=== PATIENT | female | born 1990 | race Hispanic/Latino ===

== ENCOUNTER 2023-01-22 20:43 | Emergency (ER) | payer BC, OTHER ==
--- OUTSIDE RECORDS SUMMARY | 2023-01-22 20:47 | XMS REPORT | Continuity of Care Document ---
:1990 Author Organization [facility] t Address [address] [place] [address] Care Team Providers Name Role Phone Ulices Bryan Melo Attending Clinician Unavailable Aden Gleason Attending Clinician Unavailable Aden Gleason Admitting Clinician Unavailable Payers Payer Name Policy Type Policy Number Effective Date Expiration Date Derick anastasiiajorje Blue Cross 6 [id number] 2021 [facility] Blue Shield 00:00:00 - [facility] AETNA 53 [id number] 2016 [facility] 00:00:00 [facility] Problems Condition Condition Condition Status Onset Resolution Last Treating Co mments Source Name Details Category Date Date Treatment Clinician Date [id number] Body mass Problem Com mon index Spirit [BMI] - [facility] 30.0-30.9, [facility] [id number] Other Problem Common obesity Spirit due to - [facility] excess [facility] [id number] Well woman Problem Co mmon exam with Spirit routine - [facility] gynecologi [facility] [id number] Herpes Problem Common simplex Spirit vulvovagin - [facility] itis [facility] [id number] Pharyngiti Problem Co mmon s, Spirit unspecifie - [facility] d etiology [facility] [id number] Fever, Problem Common unspecifie Spirit d fever - [facility] cause [facility] [id number] Influenza Problem Comm on B [facility] [id number] Surveillan Problem Co mmon ce for Spirit - [facility] control, [facility] ne [facility] [id number] Mixed Problem Common hyperlipid [facility] emia - [facility] Allergies, Adverse Reactions, Alerts Allergy Allergy Status Severity Reaction(s) Onset Inactive Treating Comm ents Source Name Type Date Date Clinician No Known DA Active U 2012-11 [facility] No Known DA Active U 2012-11 [facility] Allergie 2[facility] 00 [facility] Social History Social Habit Start Date Stop Date Quantity Comments Source History of Tobacco Use Co mmon [facility] Sex Assigned At Com mon [facility] Smoking Status Start Date Stop Date Source Never Smoker Common [facility] Medications Ordered Filled Start Stop Current Ordering Indication Dosage Frequency Signature Comments Components Source Medication Medication Date Date Medication? Clinician (SIG) Name Name Urban Wang 2021-11- No Mounjaro 5 MG/0.5ML MG/0.5ML 0-05 01-27 MG/0.5ML 00:00: 00:00 00 :00 Urban Duggan 5 2021-11- No Mounjaro 5 MG/0.5ML MG/0.5ML 0-05 01-27 MG/0.5ML 00:00: 00:00 00 :00 Urban Duggan 5 2021-11- No Mounjaro 5 MG/0.5ML MG/0.5ML 0-05 11-25 MG/0.5ML 00:00: 00:00 00 :00 Urban Duggan 5 2021-11- No Mounjaro 5 MG/0.5ML MG/0.5ML 0-05 11-04 MG/0.5ML 00:00: 00:00 00 :00 Mounjaro Mounjaro 2021- No Mounjaro 2.5 2.5 9- 10-01 2.5 MG/0.5ML MG/0.5ML 00:00: 00:00 MG/0.5ML 00 :00 Mounjaro Mounjaro 2021- No Mounjaro 2.5 2.5 9- 10-01 2.5 MG/0.5ML MG/0.5ML 00:00: 00:00 MG/0.5ML 00 :00 Mounjaro Mounjaro 2021- No Mounjaro 2.5 2.5 9- 10-01 2.5 MG/0.5ML MG/0.5ML 00:00: 00:00 MG/0.5ML 00 :00 Ozempic (1 Ozempic (1 2021- No Ozempic (1 MG/DOSE) 4 MG/DOSE) 4 8-05 10-04 MG/DOSE) 4 MG/3ML MG/3ML 00:00: 00:00 MG/3ML 00 :00 Tessalon Tessalon 2021- No TID Tessalon Perles 100 Perles 100 04-09 Perles 100 MG MG 00:00: 00:00 MG 00 :00 Tessalon Tessalon 2021- No TID Tessalon Perles 100 Perles 100 04-09 Perles 100 MG MG 00:00: 00:00 MG 00 :00 Tessalon Tessalon 2021- No TID Tessalon Perles 100 Perles 100 04-09 Perles 100 MG MG 00:00: 00:00 MG 00 :00 Tessalon Tessalon 2021- No TID Tessalon Perles 100 Perles 100 04-0912 Perles 100 MG MG 00:00: 00:00 MG 00 :00 Tessalon Tessalon 2021- No TID Tessalon Perles 100 Perles 100 6-02 06-12 Perles 100 MG MG 00:00: 00:00 MG 00 :00 Pen Irwin Pen Irwin 0 No Pen 31G X 5 MM 31G X 5 MM 3-24 Irwin 00:00: 31G X 5 MM 00 Pen Irwin Pen Irwin 0 No Pen 31G X 5 MM 31G X 5 MM 3-24 Irwin 00:00: 31G X 5 MM 00 Pen Irwin Pen Irwin 0 No Pen 31G X 5 MM 31G X 5 MM 3-24 Irwin 00:00: 31G X 5 MM 00 Ozempic Ozempic 0 No Ozempic (0.25 or (0.25 or 3-24 (0.25 or 0.5 0.5 00:00: 0.5 MG/DOSE) 2 MG/DOSE) 2 00 MG/DOSE) 2 MG/1.5ML MG/1.5ML MG/1.5ML Pen Irwin Pen Irwin 0 No Pen 31G X 5 MM 31G X 5 MM 3-24 Irwin 00:00: 31G X 5 MM 00 Pen Irwin Pen Irwin 0 No Pen 31G X 5 MM 31G X 5 MM 3-24 Irwin 00:00: 31G X 5 MM 00 Ozempic Ozempic 0 No Ozempic (0.25 or (0.25 or 3-24 (0.25 or 0.5 0.5 00:00: 0.5 MG/DOSE) 2 MG/DOSE) 2 00 MG/DOSE) 2 MG/1.5ML MG/1.5ML MG/1.5ML Pen Irwin Pen Irwin 0 No Pen 31G X 5 MM 31G X 5 MM 3-24 Irwin 00:00: 31G X 5 MM 00 Ozempic Ozempic 0 No Ozempic (0.25 or (0.25 or 3-24 (0.25 or 0.5 0.5 00:00: 0.5 MG/DOSE) 2 MG/DOSE) 2 00 MG/DOSE) 2 MG/1.5ML MG/1.5ML MG/1.5ML Pen Irwin Pen Irwin 0 No Pen 31G X 5 MM 31G X 5 MM 3-24 Irwin 00:00: 31G X 5 MM 00 Ozempic Ozempic 2021-0 No Ozempic (0.25 or (0.25 or 3-24 (0.25 or 0.5 0.5 00:00: 0.5 MG/DOSE) 2 MG/DOSE) 2 00 MG/DOSE) 2 MG/1.5ML MG/1.5ML MG/1.5ML Ozempic Ozempic 2021-0 No Ozempic (0.25 or (0.25 or 3-24 (0.25 or 0.5 0.5 00:00: 0.5 MG/DOSE) 2 MG/DOSE) 2 00 MG/DOSE) 2 MG/1.5ML MG/1.5ML MG/1.5ML Pen Irwin Pen Irwin 2021-0 No Pen 31G X 5 MM 31G X 5 MM 3-24 Irwin 00:00: 31G X 5 MM 00 Pen Irwin Pen Irwin 2021-0 No Pen 31G X 5 MM 31G X 5 MM 3-24 Irwin 00:00: 31G X 5 MM 00 Pen Irwin Pen Irwin 2021-0 No Pen 31G X 5 MM 31G X 5 MM 3-24 Irwin 00:00: 31G X 5 MM 00 Pen Irwin Pen Irwin 2021-0 No Pen 31G X 5 MM 31G X 5 MM 3-24 Irwin 00:00: 31G X 5 MM 00 Pen Irwin Pen Irwin 2021-0 No Pen 31G X 5 MM 31G X 5 MM 3-24 Irwin 00:00: 31G X 5 MM 00 Pen Irwin Pen Irwin 2021-0 No Pen 31G X 5 MM 31G X 5 MM 3-24 Irwin 00:00: 31G X 5 MM 00 Pen Irwin Pen Irwin 2021-0 No Pen 31G X 5 MM 31G X 5 MM 3-24 Irwin 00:00: 31G X 5 MM 00 Pen Irwin Pen Irwin 2021-0 No Pen 31G X 5 MM 31G X 5 MM 3-24 Irwin 00:00: 31G X 5 MM 00 Pen Irwin Pen Irwin 2021-0 No Pen 31G X 5 MM 31G X 5 MM 3-24 Irwin 00:00: 31G X 5 MM 00 Pen Irwin Pen Irwin 2021-0 No Pen 31G X 5 MM 31G X 5 MM 3-24 Irwin 00:00: 31G X 5 MM 00 Pen Irwin Pen Irwin No Pen 31G X 5 MM 31G X 5 MM 24 Irwin 00:00: 31G X 5 MM 00 Pen Irwin Pen Irwin No Pen 31G X 5 MM 31G X 5 MM 01-29 Irwin 00:00: 31G X 5 MM 00 Pen Irwin Pen Irwin No Pen 31G X 5 MM 31G X 5 MM 01-29 Irwin 00:00: 31G X 5 MM 00 Ozempic Ozempic 2021- No Ozempic (0.25 or (0.25 or 324 05-20 (0.25 or 0.5 0.5 00:00: 00:00 0.5 MG/DOSE) 2 MG/DOSE) 2 00 :00 MG/DOSE) 2 MG/1.5ML MG/1.5ML MG/1.5ML Ozempic Ozempic 2021- No Ozempic (0.25 or (0.25 or 324 05-20 (0.25 or 0.5 0.5 00:00: 00:00 0.5 MG/DOSE) 2 MG/DOSE) 2 00 :00 MG/DOSE) 2 MG/1.5ML MG/1.5ML MG/1.5ML Ozempic Ozempic 2021- No Ozempic (0.25 or (0.25 or 24 05-05 (0.25 or 0.5 0.5 00:00: 00:00 0.5 MG/DOSE) 2 MG/DOSE) 2 00 :00 MG/DOSE) 2 MG/1.5ML MG/1.5ML MG/1.5ML Metformin Metformin 0 No 1{table BID Metformin HCl 500 MG HCl 500 MG 3-08 t_with_ HCl 500 MG 00:00: a_meal} 00 Metformin Metformin 2021-0 No 1{table BID Metformin HCl 500 MG HCl 500 MG 3-08 t_with_ HCl 500 MG 00:00: a_meal} 00 Metformin Metformin 2021-0 No 1{table BID Metformin HCl 500 MG HCl 500 MG 3-08 t_with_ HCl 500 MG 00:00: a_meal} 00 Metformin Metformin 2022-0 No 1{table BID Metformin HCl 500 MG HCl 500 MG 3-08 t_with_ HCl 500 MG 00:00: a_meal} 00 Metformin Metformin 2022-0 No 1{table BID Metformin HCl 500 MG HCl 500 MG 3-08 t_with_ HCl 500 MG 00:00: a_meal} 00 Metformin Metformin 2022-0 No 1{table BID Metformin HCl 500 MG HCl 500 MG 3-08 t_with_ HCl 500 MG 00:00: a_meal} 00 Metformin Metformin 2022-0 No 1{table BID Metformin HCl 500 MG HCl 500 MG 3-08 t_with_ HCl 500 MG 00:00: a_meal} 00 Metformin Metformin 2022-0 No 1{table BID Metformin HCl 500 MG HCl 500 MG 3-08 t_with_ HCl 500 MG 00:00: a_meal} 00 Metformin Metformin 2022-0 No 1{table BID Metformin HCl 500 MG HCl 500 MG 3-08 t_with_ HCl 500 MG 00:00: a_meal} 00 Metformin Metformin 2022-0 No 1{table BID Metformin HCl 500 MG HCl 500 MG 3-08 t_with_ HCl 500 MG 00:00: a_meal} 00 Metformin Metformin 2022-0 No 1{table BID Metformin HCl 500 MG HCl 500 MG 3-08 t_with_ HCl 500 MG 00:00: a_meal} 00 Metformin Metformin 2022-0 No 1{table BID Metformin HCl 500 MG HCl 500 MG 3-08 t_with_ HCl 500 MG 00:00: a_meal} 00 Metformin Metformin 2022-0 No 1{table BID Metformin HCl 500 MG HCl 500 MG 3-08 t_with_ HCl 500 MG 00:00: a_meal} 00 Metformin Metformin 2022-0 No 1{table BID Metformin HCl 500 MG HCl 500 MG 3-08 t_with_ HCl 500 MG 00:00: a_meal} 00 Metformin Metformin 2022-0 No 1{table BID Metformin HCl 500 MG HCl 500 MG 3-08 t_with_ HCl 500 MG 00:00: a_meal} 00 Metformin Metformin 2022-0 No 1{table BID Metformin HCl 500 MG HCl 500 MG 3-08 t_with_ HCl 500 MG 00:00: a_meal} 00 Metformin Metformin 2022-0 No 1{table BID Metformin HCl 500 MG HCl 500 MG 3-08 t_with_ HCl 500 MG 00:00: a_meal} 00 Metformin Metformin 2022-0 No 1{table BID Metformin HCl 500 MG HCl 500 MG 3-08 t_with_ HCl 500 MG 00:00: a_meal} 00 Metformin Metformin 2022-0 No 1{table BID Metformin HCl 500 MG HCl 500 MG 3-08 t_with_ HCl 500 MG 00:00: a_meal} 00 Metformin Metformin 2022-0 No 1{table BID Metformin HCl 500 MG HCl 500 MG 3-08 t_with_ HCl 500 MG 00:00: a_meal} 00 Metformin Metformin 2022-0 No 1{table BID Metformin HCl 500 MG HCl 500 MG 3-08 t_with_ HCl 500 MG 00:00: a_meal} 00 Metformin Metformin 2022-0 No 1{table BID Metformin HCl 500 MG HCl 500 MG 3-08 t_with_ HCl 500 MG 00:00: a_meal} 00 Metformin Metformin 2022-0 No 1{table BID Metformin HCl 500 MG HCl 500 MG 3-08 t_with_ HCl 500 MG 00:00: a_meal} 00 Tamiflu Tamiflu 2019-0 Yes Bryan 1 capsule Common 3- Elena [facility] 00:00: - [facility] 00 [facility] Tamiflu 75 Tamiflu 75 2019-0 No 1{capsu BID Tamiflu 75 MG MG 3-01 le} MG 00:00: 00 Tamiflu 75 Tamiflu 75 2019-0 No 1{capsu BID Tamiflu 75 MG MG 3- le} MG 00:00: 00 Tamiflu 75 Tamiflu 75 2019-0 No 1{capsu BID Tamiflu 75 MG MG 3- le} MG 00:00: 00 Tamiflu 75 Tamiflu 75 2019-0 No 1{capsu BID Tamiflu 75 MG MG 3-01 le} MG 00:00: 00 Tamiflu 75 Tamiflu 75 2019-0 No 1{capsu BID Tamiflu 75 MG MG 3-01 le} MG 00:00: 00 Tamiflu 75 Tamiflu 75 2019-0 No 1{capsu BID Tamiflu 75 MG MG 3-01 le} MG 00:00: 00 Tamiflu 75 Tamiflu 75 2019-0 No 1{capsu BID Tamiflu 75 MG MG 3-01 le} MG 00:00: 00 Tamiflu 75 Tamiflu 75 2019-0 No 1{capsu BID Tamiflu 75 MG MG 3-01 le} MG 00:00: 00 Tamiflu 75 Tamiflu 75 2019-0 No 1{capsu BID Tamiflu 75 MG MG 3-01 le} MG 00:00: 00 Tamiflu 75 Tamiflu 75 2019-0 No 1{capsu BID Tamiflu 75 MG MG 3-01 le} MG 00:00: 00 Tamiflu 75 Tamiflu 75 2019-0 No 1{capsu BID Tamiflu 75 MG MG 3-01 le} MG 00:00: 00 Tamiflu 75 Tamiflu 75 2019-0 No 1{capsu BID Tamiflu 75 MG MG 3-01 le} MG 00:00: 00 Tamiflu 75 Tamiflu 75 2019-0 No 1{capsu BID Tamiflu 75 MG MG 3-01 le} MG 00:00: 00 Tamiflu 75 Tamiflu 75 2019-0 No 1{capsu BID Tamiflu 75 MG MG 3- le} MG 00:00: 00 Tamiflu 75 Tamiflu 75 2019-0 No 1{capsu BID Tamiflu 75 MG MG 3- le} MG 00:00: 00 Tamiflu 75 Tamiflu 75 2019-0 No 1{capsu BID Tamiflu 75 MG MG 3- le} MG 00:00: 00 Tamiflu 75 Tamiflu 75 2019-0 No 1{capsu BID Tamiflu 75 MG MG 3- le} MG 00:00: 00 Tamiflu 75 Tamiflu 75 2019-0 No 1{capsu BID Tamiflu 75 MG MG 3- le} MG 00:00: 00 Tamiflu 75 Tamiflu 75 2019-0 No 1{capsu BID Tamiflu 75 MG MG 3- le} MG 00:00: 00 Tamiflu 75 Tamiflu 75 2019-0 No 1{capsu BID Tamiflu 75 MG MG 3-01 le} MG 00:00: 00 Tamiflu 75 Tamiflu 75 2019-0 No 1{capsu BID Tamiflu 75 MG MG 3-01 le} MG 00:00: 00 Tamiflu 75 Tamiflu 75 2019-0 No 1{capsu BID Tamiflu 75 MG MG 3-01 le} MG 00:00: 00 Tamiflu 75 Tamiflu 75 2019-0 No 1{capsu BID Tamiflu 75 MG MG 3-01 le} MG 00:00: 00 Tamiflu 75 Tamiflu 75 2019-0 No 1{capsu BID Tamiflu 75 MG MG 3-01 le} MG 00:00: 00 Tamiflu 75 Tamiflu 75 2019-0 No 1{capsu BID Tamiflu 75 MG MG 3-01 le} MG 00:00: 00 Tamiflu 75 Tamiflu 75 2019-0 No 1{capsu BID Tamiflu 75 MG MG 3-01 le} MG 00:00: 00 Tamiflu 75 Tamiflu 75 2019-0 No 1{capsu BID Tamiflu 75 MG MG 3-01 le} MG 00:00: 00 Valacyclovi Valacyclovi Yes Bryan 1 tablet Common r HCl r HCl Elena [facility] Mirena Mirena Yes Bryan not Common Elena defined [facility] valACYclovi valACYclovi No 1{table QD valACYclov r HCl 1 GM r HCl 1 GM t} ir HCl 1 GM Albuterol Albuterol No Albuterol Sulfate HFA Sulfate HFA Sulfate 108 (90 108 (90 HFA 108 Base) Base) (90 Base) MCG/ACT MCG/ACT MCG/ACT valACYclovi valACYclovi No 1{table QD valACYclov r HCl 1 GM r HCl 1 GM t} ir HCl 1 GM Mirena Mirena No Mirena Albuterol Albuterol No Albuterol Sulfate HFA Sulfate HFA Sulfate 108 (90 108 (90 HFA 108 Base) Base) (90 Base) MCG/ACT MCG/ACT MCG/ACT valACYclovi valACYclovi No 1{table QD valACYclov r HCl 1 GM r HCl 1 GM t} ir HCl 1 GM Mirena Mirena No Mirena Albuterol Albuterol No Albuterol Sulfate HFA Sulfate HFA Sulfate 108 (90 108 (90 HFA 108 Base) Base) (90 Base) MCG/ACT MCG/ACT MCG/ACT valACYclovi valACYclovi No 1{table QD valACYclov r HCl 1 GM r HCl 1 GM t} ir HCl 1 GM Mirena Mirena No Mirena Albuterol Albuterol No Albuterol Sulfate HFA Sulfate HFA Sulfate 108 (90 108 (90 HFA 108 Base) Base) (90 Base) MCG/ACT MCG/ACT MCG/ACT Albuterol Albuterol No Albuterol Sulfate HFA Sulfate HFA Sulfate 108 (90 108 (90 HFA 108 Base) Base) (90 Base) MCG/ACT MCG/ACT MCG/ACT valACYclovi valACYclovi No 1{table QD valACYclov r HCl 1 GM r HCl 1 GM t} ir HCl 1 GM Mirena Mirena No Mirena Albuterol Albuterol No Albuterol Sulfate HFA Sulfate HFA Sulfate 108 (90 108 (90 HFA 108 Base) Base) (90 Base) MCG/ACT MCG/ACT MCG/ACT valACYclovi valACYclovi No 1{table QD valACYclov r HCl 1 GM r HCl 1 GM t} ir HCl 1 GM Mirena Mirena No Mirena Albuterol Albuterol No Albuterol Sulfate HFA Sulfate HFA Sulfate 108 (90 108 (90 HFA 108 Base) Base) (90 Base) MCG/ACT MCG/ACT MCG/ACT valACYclovi valACYclovi No 1{table QD valACYclov r HCl 1 GM r HCl 1 GM t} ir HCl 1 GM Mirena Mirena No Mirena valACYclovi valACYclovi No 1{table QD valACYclov r HCl 1 GM r HCl 1 GM t} ir HCl 1 GM Mirena Mirena No Mirena Albuterol Albuterol No Albuterol Sulfate HFA Sulfate HFA Sulfate 108 (90 108 (90 HFA 108 Base) Base) (90 Base) MCG/ACT MCG/ACT MCG/ACT valACYclovi valACYclovi No 1{table QD valACYclov r HCl 1 GM r HCl 1 GM t} ir HCl 1 GM Mirena Mirena No Mirena Albuterol Albuterol No Albuterol Sulfate HFA Sulfate HFA Sulfate 108 (90 108 (90 HFA 108 Base) Base) (90 Base) MCG/ACT MCG/ACT MCG/ACT valACYclovi valACYclovi No 1{table QD valACYclov r HCl 1 GM r HCl 1 GM t} ir HCl 1 GM Mirena Mirena No Mirena Albuterol Albuterol No Albuterol Sulfate HFA Sulfate HFA Sulfate 108 (90 108 (90 HFA 108 Base) Base) (90 Base) MCG/ACT MCG/ACT MCG/ACT valACYclovi valACYclovi No 1{table QD valACYclov r HCl 1 GM r HCl 1 GM t} ir HCl 1 GM Mirena Mirena No Mirena Albuterol Albuterol No Albuterol Sulfate HFA Sulfate HFA Sulfate 108 (90 108 (90 HFA 108 Base) Base) (90 Base) MCG/ACT MCG/ACT MCG/ACT Mirena Mirena No Mirena Albuterol Albuterol No Albuterol Sulfate HFA Sulfate HFA Sulfate 108 (90 108 (90 HFA 108 Base) Base) (90 Base) MCG/ACT MCG/ACT MCG/ACT valACYclovi valACYclovi No 1{table QD valACYclov r HCl 1 GM r HCl 1 GM t} ir HCl 1 GM Mirena Mirena No Mirena Albuterol Albuterol No Albuterol Sulfate HFA Sulfate HFA Sulfate 108 (90 108 (90 HFA 108 Base) Base) (90 Base) MCG/ACT MCG/ACT MCG/ACT valACYclovi valACYclovi No 1{table QD valACYclov r HCl 1 GM r HCl 1 GM t} ir HCl 1 GM Mirena Mirena No Mirena Albuterol Albuterol No Albuterol Sulfate HFA Sulfate HFA Sulfate 108 (90 108 (90 HFA 108 Base) Base) (90 Base) MCG/ACT MCG/ACT MCG/ACT valACYclovi valACYclovi No 1{table QD valACYclov r HCl 1 GM r HCl 1 GM t} ir HCl 1 GM valACYclovi valACYclovi No 1{table QD valACYclov r HCl 1 GM r HCl 1 GM t} ir HCl 1 GM Albuterol Albuterol No Albuterol Sulfate HFA Sulfate HFA Sulfate 108 (90 108 (90 HFA 108 Base) Base) (90 Base) MCG/ACT MCG/ACT MCG/ACT Mirena Mirena No Mirena Mirena Mirena No Mirena valACYclovi valACYclovi No 1{table QD valACYclov r HCl 1 GM r HCl 1 GM t} ir HCl 1 GM Ozempic Ozempic No Ozempic (0.25 or (0.25 or (0.25 or 0.5 0.5 0.5 MG/DOSE) 2 MG/DOSE) 2 MG/DOSE) 2 MG/1.5ML MG/1.5ML MG/1.5ML Albuterol Albuterol No Albuterol Sulfate HFA Sulfate HFA Sulfate 108 (90 108 (90 HFA 108 Base) Base) (90 Base) MCG/ACT MCG/ACT MCG/ACT Mirena Mirena No Mirena valACYclovi valACYclovi No 1{table QD valACYclov r HCl 1 GM r HCl 1 GM t} ir HCl 1 GM Ozempic Ozempic No Ozempic (0.25 or (0.25 or (0.25 or 0.5 0.5 0.5 MG/DOSE) 2 MG/DOSE) 2 MG/DOSE) 2 MG/1.5ML MG/1.5ML MG/1.5ML Albuterol Albuterol No Albuterol Sulfate HFA Sulfate HFA Sulfate 108 (90 108 (90 HFA 108 Base) Base) (90 Base) MCG/ACT MCG/ACT MCG/ACT valACYclovi valACYclovi No 1{table QD valACYclov r HCl 1 GM r HCl 1 GM t} ir HCl 1 GM Ozempic Ozempic No Ozempic (0.25 or (0.25 or (0.25 or 0.5 0.5 0.5 MG/DOSE) 2 MG/DOSE) 2 MG/DOSE) 2 MG/1.5ML MG/1.5ML MG/1.5ML Albuterol Albuterol No Albuterol Sulfate HFA Sulfate HFA Sulfate 108 (90 108 (90 HFA 108 Base) Base) (90 Base) MCG/ACT MCG/ACT MCG/ACT Mirena Mirena No Mirena Albuterol Albuterol No Albuterol Sulfate HFA Sulfate HFA Sulfate 108 (90 108 (90 HFA 108 Base) Base) (90 Base) MCG/ACT MCG/ACT MCG/ACT Mirena Mirena No Mirena valACYclovi valACYclovi No 1{table QD valACYclov r HCl 1 GM r HCl 1 GM t} ir HCl 1 GM Ozempic Ozempic No Ozempic (0.25 or (0.25 or (0.25 or 0.5 0.5 0.5 MG/DOSE) 2 MG/DOSE) 2 MG/DOSE) 2 MG/1.5ML MG/1.5ML MG/1.5ML Albuterol Albuterol No Albuterol Sulfate HFA Sulfate HFA Sulfate 108 (90 108 (90 HFA 108 Base) Base) (90 Base) MCG/ACT MCG/ACT MCG/ACT Mirena Mirena No Mirena valACYclovi valACYclovi No 1{table QD valACYclov r HCl 1 GM r HCl 1 GM t} ir HCl 1 GM Ozempic Ozempic No Ozempic (0.25 or (0.25 or (0.25 or 0.5 0.5 0.5 MG/DOSE) 2 MG/DOSE) 2 MG/DOSE) 2 MG/1.5ML MG/1.5ML MG/1.5ML Ozempic Ozempic No Ozempic (0.25 or (0.25 or (0.25 or 0.5 0.5 0.5 MG/DOSE) 2 MG/DOSE) 2 MG/DOSE) 2 MG/1.5ML MG/1.5ML MG/1.5ML Mirena Mirena No Mirena Albuterol Albuterol No Albuterol Sulfate HFA Sulfate HFA Sulfate 108 (90 108 (90 HFA 108 Base) Base) (90 Base) MCG/ACT MCG/ACT MCG/ACT valACYclovi valACYclovi No 1{table QD valACYclov r HCl 1 GM r HCl 1 GM t} ir HCl 1 GM Ozempic Ozempic No Ozempic (0.25 or (0.25 or (0.25 or 0.5 0.5 0.5 MG/DOSE) 2 MG/DOSE) 2 MG/DOSE) 2 MG/1.5ML MG/1.5ML MG/1.5ML Mirena Mirena No Mirena valACYclovi valACYclovi No 1{table QD valACYclov r HCl 1 GM r HCl 1 GM t} ir HCl 1 GM Albuterol Albuterol No Albuterol Sulfate HFA Sulfate HFA Sulfate 108 (90 108 (90 HFA 108 Base) Base) (90 Base) MCG/ACT MCG/ACT MCG/ACT Ozempic Ozempic No Ozempic (0.25 or (0.25 or (0.25 or 0.5 0.5 0.5 MG/DOSE) 2 MG/DOSE) 2 MG/DOSE) 2 MG/1.5ML MG/1.5ML MG/1.5ML valACYclovi valACYclovi No 1{table QD valACYclov r HCl 1 GM r HCl 1 GM t} ir HCl 1 GM Albuterol Albuterol No Albuterol Sulfate HFA Sulfate HFA Sulfate 108 (90 108 (90 HFA 108 Base) Base) (90 Base) MCG/ACT MCG/ACT MCG/ACT Mirena Mirena No Mirena Ozempic Ozempic No Ozempic (0.25 or (0.25 or (0.25 or 0.5 0.5 0.5 MG/DOSE) 2 MG/DOSE) 2 MG/DOSE) 2 MG/1.5ML MG/1.5ML MG/1.5ML valACYclovi valACYclovi No 1{table QD valACYclov r HCl 1 GM r HCl 1 GM t} ir HCl 1 GM Albuterol Albuterol No Albuterol Sulfate HFA Sulfate HFA Sulfate 108 (90 108 (90 HFA 108 Base) Base) (90 Base) MCG/ACT MCG/ACT MCG/ACT Mirena Mirena No Mirena Ozempic Ozempic No Ozempic (0.25 or (0.25 or (0.25 or 0.5 0.5 0.5 MG/DOSE) 2 MG/DOSE) 2 MG/DOSE) 2 MG/1.5ML MG/1.5ML MG/1.5ML Mounjaro 5 Mounjaro 5 No Mounjaro 5 MG/0.5ML MG/0.5ML MG/0.5ML Mirena Mirena No Mirena valACYclovi valACYclovi No 1{table QD valACYclov r HCl 1 GM r HCl 1 GM t} ir HCl 1 GM Albuterol Albuterol No Albuterol Sulfate HFA Sulfate HFA Sulfate 108 (90 108 (90 HFA 108 Base) Base) (90 Base) MCG/ACT MCG/ACT MCG/ACT Ozempic Ozempic No Ozempic (0.25 or (0.25 or (0.25 or 0.5 0.5 0.5 MG/DOSE) 2 MG/DOSE) 2 MG/DOSE) 2 MG/1.5ML MG/1.5ML MG/1.5ML Mounjaro 5 Mounjaro 5 No Mounjaro 5 MG/0.5ML MG/0.5ML MG/0.5ML Mirena Mirena No Mirena valACYclovi valACYclovi No 1{table QD valACYclov r HCl 1 GM r HCl 1 GM t} ir HCl 1 GM Albuterol Albuterol No Albuterol Sulfate HFA Sulfate HFA Sulfate 108 (90 108 (90 HFA 108 Base) Base) (90 Base) MCG/ACT MCG/ACT MCG/ACT Albuterol Albuterol No Albuterol Sulfate HFA Sulfate HFA Sulfate 108 (90 108 (90 HFA 108 Base) Base) (90 Base) MCG/ACT MCG/ACT MCG/ACT Mirena Mirena No Mirena valACYclovi valACYclovi No 1{table QD valACYclov r HCl 1 GM r HCl 1 GM t} ir HCl 1 GM Ozempic Ozempic No Ozempic (0.25 or (0.25 or (0.25 or 0.5 0.5 0.5 MG/DOSE) 2 MG/DOSE) 2 MG/DOSE) 2 MG/1.5ML MG/1.5ML MG/1.5ML Mirena Mirena No Mirena Vital Signs Vital Name Observation Time Observation Value Comments Source height 2022-10-05 16:50:00 61 [in_i] [facility] weight 2022-10-05 16:50:00 135 [lb_av] [facility] 2022-10-05 16:50:00 25.51 kg/m2 [facility] height 2022-08-12 11:40:00 61 [in_i] [facility] weight 2022-08-12 11:40:00 144 [lb_av] [facility] 2022-08-12 11:40:00 27.21 kg/m2 [facility] blood pressure 2022-08-12 11:40:00 117 mm[Hg] [facility] blood pressure 2022-08-12 11:40:00 67 mm[Hg] [facility] height 2022-07-09 11:10:00 61 [in_i] [facility] weight 2022-07-09 11:10:00 149 [lb_av] [facility] temperature 2022-07-09 11:10:00 98 [degF] [facility] bmi 2022-07-09 11:10:00 28.15 kg/m2 [facility] height 2022-06-12 10:50:00 61 [in_i] [facility] weight 2022-06-12 10:50:00 151.4 [lb_av] [facility] temperature 2022-06-12 10:50:00 97.7 [degF] [facility] bmi 2022-06-12 10:50:00 28.6 kg/m2 [facility] oximetry 2022-06-12 10:50:00 99 % [facility] respiratory rate 2022-06-12 10:50:00 18 /min [facility] blood pressure 2022-06-12 10:50:00 118 mm[Hg] [facility] systolic [facility] blood pressure 2022-06-12 10:50:00 60 mm[Hg] [facility] diastolic [facility] height 2022-04-10 09:30:00 61 [in_i] [facility] weight 2022-04-10 09:30:00 160 [lb_av] [facility] temperature 2022-04-10 09:30:00 98 [degF] [facility] bmi 2022-04-10 09:30:00 30.23 kg/m2 [facility] height 2021-12-10 13:00:00 61 [in_i] [facility] weight 2021-12-10 13:00:00 170 [lb_av] [facility] temperature 2021-12-10 13:00:00 97.4 [degF] [facility] bmi 2021-12-10 13:00:00 32.12 kg/m2 [facility] height 2021-08-12 11:00:00 61 [in_i] [facility] weight 2021-08-12 11:00:00 170 [lb_av] [facility] temperature 2021-08-12 11:00:00 98 [degF] [facility] bmi 2021-08-12 11:00:00 32.12 kg/m2 [facility] Procedures Procedure Date / Time Performed Performing Clinician Kati masterson [id number] 2020-09-18 00:00:00 [facility] Encounters Start End Encounter Admission Attending Care Care Encounter Source Date/Time Date/Time Type Type Clinicians Facility Department ID 2022-06-13 Outpatient Elena, STLMLC STLMLC [id number] Common 09:12:[address] [facility] 2021-12-03 Outpatient Elena, STLMLC STLMLC [id number] Common 14:38:[address] [facility] 2021-12-03 Outpatient Elena, STLMLC STLMLC [id number] Common 14:23:[address] [facility] 2021-12-03 Outpatient Elena, STLMLC STLMLC [id number] Common 14:01:[address] [facility] 2021-12-03 Outpatient Elena, STLMLC STLMLC [id number] Common 13:56:[id number] [facility] 2021-12-03 Outpatient Elena, STLMLC STLMLC [id number] Common 13:46:[address] [facility] 2021-12-03 Outpatient Elena, STLMLC STLMLC [id number] Common 13:46:[address] [facility] 2021-12-03 Outpatient Elena, STLMLC STLMLC [id number] Common 13:45:[address] [facility] 2021-12-03 Outpatient Elena, STLMLC STLMLC [id number] Common 13:36:[address] [facility] 2021-12-03 Outpatient Elena, STLMLC STLMLC [id number] Common 13:27:[address] [facility] 2021-12-03 Outpatient Elena, STLMLC STLMLC [id number] Common 13:26:[address] [facility] 2021-12-03 Outpatient Elena, STLMLC STLMLC [id number] Common 13:23:[address] [facility] 2021-12-03 Outpatient Elena, STLMLC STLMLC [id number] Common 13:19:05 Bryan [id number] [facility] 2021-12-03 Outpatient Elena, STLMLC STLMLC [id number] Common 13:15:[address] [facility] 2021-12-03 Outpatient Elena, STLMLC STLMLC [id number] Common 13:14:[address] [facility] 2021-12-03 Outpatient Elena, STLMLC STLMLC [id number] Common 13:04:[address] [facility] 2021-12-03 Outpatient Elena, STLMLC STLMLC [id number] Common 12:16:[address] [facility] 2021-12-03 Outpatient Elena, STLMLC STLMLC [id number] Common 11:43:[address] [facility] 2020-09-18 Inpatient ANH Gleason, [facility].01 [id number] [facility] 11:50:00 [facility] 2022-11-10 2022-11-10 (WEB) STLMLC STLMLC [id number] Co mmon 00:00:00 00:00:00 [facility] 2022-10-16 2022-10-16 (WEB) STLMLC STLMLC [id number] Co mmon 00:00:00 00:00:00 [facility] 2022-10-06 2022-10-06 (WEB) STLMLC STLMLC [id number] Co mmon 00:00:00 00:00:00 [facility] 2022-10-05 2022-10-05 OFFICE STLMLC STLMLC [id number] Co mmon 00:00:00 00:00:00 VISIT EST Spir it PT LEVEL 3 [facility] 2022-09-02 2022-09-02 (WEB) STLMLC STLMLC [id number] Co mmon 00:00:00 00:00:00 [facility] 2022-08-12 2022-08-12 OFFICE STLMLC STLMLC [id number] Co mmon 00:00:00 00:00:00 VISIT EST Spir it PT LEVEL 3 [facility] 2022-07-29 2022-07-29 (WEB) STLMLC STLMLC [id number] Co mmon 00:00:00 00:00:00 [facility] 2022-07-09 2022-07-09 OFFICE STLMLC STLMLC [id number] Co mmon 00:00:00 00:00:00 VISIT EST Spir it PT LEVEL 3 [facility] 2022-06-12 2022-06-12 PREV VISIT STLMLC STLMLC [id number] Common 00:00:00 00:00:00 EST AGE [facility] 18-39 [facility] 2022-05-18 2022-05-18 (WEB) STLMLC STLMLC [id number] Co mmon 00:00:00 00:00:00 [facility] 2022-04-14 2022-04-14 (WEB) STLMLC STLMLC [id number] Co mmon 00:00:00 00:00:00 [facility] 2022-04-10 2022-04-10 OFFICE STLMLC STLMLC [id number] Co mmon 00:00:00 00:00:00 VISIT EST Spir it PT LEVEL 3 [facility] 2022-04-09 2022-04-09 (WEB) STLMLC STLMLC [id number] Co mmon 00:00:00 00:00:00 [facility] 2022-04-09 2022-04-09 (WEB) STLMLC STLMLC [id number] Co mmon 00:00:00 00:00:00 [facility] 2022-04-09 2022-04-09 (WEB) STLMLC STLMLC [id number] Co mmon 00:00:00 00:00:00 [facility] 2022-04-03 2022-04-03 (WEB) STLMLC STLMLC [id number] Co mmon 00:00:00 00:00:00 [facility] 2022-03-26 2022-03-26 (WEB) STLMLC STLMLC [id number] Co mmon 00:00:00 00:00:00 [facility] 2022-02-25 2022-02-25 (WEB) STLMLC STLMLC [id number] Co mmon 00:00:00 00:00:00 [facility] 2022-01-28 2022-01-28 (WEB) STLMLC STLMLC [id number] Co mmon 00:00:00 00:00:00 [facility] 2022-01-13 2022-01-13 (WEB) STLMLC STLMLC [id number] Co mmon 00:00:00 00:00:00 [facility] 2022-01-13 2022-01-13 (WEB) STLMLC STLMLC [id number] Co mmon 00:00:00 00:00:00 [facility] 2022-01-13 2022-01-13 (WEB) STLMLC STLMLC [id number] Co mmon 00:00:00 00:00:00 [facility] 2022-01-08 2022-01-08 (WEB) STLMLC STLMLC [id number] Co mmon 00:00:00 00:00:00 [facility] 2021-12-10 2021-12-10 OFFICE STLMLC STLMLC [id number] Co mmon 00:00:00 00:00:00 VISIT EST Spir it PT LEVEL 3 [facility] 2021-12-01 2021-12-01 (WEB) STLMLC STLMLC [id number] Co mmon 00:00:00 00:00:00 [facility] 2021-08-12 2021-08-12 OFFICE STLMLC STLMLC [id number] Co mmon 00:00:00 00:00:00 VISIT EST Spir it PT LEVEL 3 [facility] 2021-07-15 2021-07-15 Outpatient STLMLC STLMLC [id number] Common 00:00:00 00:00:00 [facility] 2021-06-23 2021-06-23 Outpatient STLMLC STLMLC [id number] Common 00:00:00 00:00:00 [facility] 2021-06-23 2021-06-23 Outpatient STLMLC STLMLC [id number] Common 00:00:00 00:00:00 [facility] 2021-06-09 2021-06-09 Outpatient STLMLC STLMLC [id number] Common 00:00:00 00:00:00 [facility] 2021-06-09 2021-06-09 Outpatient STLMLC STLMLC [id number] Common 00:00:00 00:00:00 [facility] 2021-05-02 2021-05-02 Outpatient STLMLC STLMLC [id number] Common 00:00:00 00:00:00 [facility] 2021-03-12 2021-03-12 Outpatient STLMLC STLMLC [id number] Common 00:00:00 00:00:00 [facility] 2020-11-12 2020-11-12 Outpatient STLMLC STLMLC [id number] Common 00:00:00 00:00:00 [facility] 2020-08-01 2020-08-01 Outpatient STLMLC STLMLC [id number] Common 00:00:00 00:00:00 [facility] 2020-07-22 2020-07-22 [facility] [id number] Common 08:09:00 08:09:00 [address] ([employer] Drive Spir it Drive [facility] 2020-07-12 2020-07-12 [id number] Common 09:00:00 09:00:00 t [employer] ([employer] Drive Spir it Drive [facility] Results Test Description Test Time Test Comments Results Result Comments Source HGB HCT 2020-09-19 06:11:00 Test Item Value Reference Range Interpretation Comme nts HEMOGLOBIN (test code = HGB) 11.9 g/dL 10.7-13.9 N HEMATOCRIT (test code = HCT) 37.3 % 32.1-42.1 N UR HCG [id number] 08:33:00 Test Item Value Reference Range Interpretation Comments UR HCG QUAL (test NEGATIVE 1. Very di lute urine code = HCGQLU) specimens, as indicated by a lowspecific g ravity, may not contain rep resentative levels ofhCG. 2 . False negative result s may occur when the levels of hCGare below the sensi tivity level of the test. If is still suspec corina, a first morningurine sp ecimen should be colle cted 48 hours later and tested. COVID 19 Asymptomatic IH [id number] 13:45:00 Test Item Value Reference Range Interpretation Comments COVID 19 NEGATIVE NEGATIVE This test has b een Asymptomatic IH AG authorize d only for the (test code = detection ofpro teins from COVNONPUIAG) SARS-CoV-2, not for any other viruses orpathogens. Ne gative results should be treated as presumptive andconfirmed wi th a molecular assay , if necessary for patientmanageme nt. Negative result s do not rule out COVID- 19 andshould not b e used as the sole basis for treatment orpat ient management deci sions, including infec tion controldecision s. Negative result s should be considered i n thecontext of a patient's recent exposure s, history and thepresence of clinical signs and symptoms consis tent withCOVID-19. T his test has not been FD A cleared or approved; th e test hasbeen authori zed by FDA under an Emerge ncy Use Authorization(E UA) for use by laborato ebony certified under the CLIA thatmeet the re quirements to perform mode rate, high or waivedcomple xity tests. This sylvester t is authorized for use at thePoint of Car e (POC), i.e., in patien t care settingsoperati ng under a CLIA Certificat e of Waiver, Certifi ya ofCompliance, o r Certificate of Accreditation. This test is only authori nallely for the duration of thedeclaration that circumstances e xist justifying theauthorizatio n of emergency use o f in vitro diagnostic test sfor detection and/o r diagnosis of CO VID-19 under Feguymg98 4(b)(1) of the Act, 21 U.S .C. 360bbb-3(b)(1), unless theauthorizatio n is terminated or r evoked sooner. CHEMISTRY 7 [id number] 11:04:00 Test Item Value Reference Range Interpretation Comments SODIUM (test code = NA) 141 mEq/L 135-145 N POTASSIUM (test code = K) 4.1 mEq/L 3.5-5.0 N CHLORIDE (test code = CL) 106 mEq/L 100-115 N CARBON DIOXIDE (test code = CO2) 26 mEq/L 22-31 N ANION GAP (test code = GAP) 13.30 10-20 N GLUCOSE (test code = GLU) 105 mg/dL 65-110 N BLOOD UREA NITROGEN (test code = 11 mg/dL 7-18 N BUN) GLOMERULAR FILTRATION RATE (test 117 ml/min >60 N code = GFR) CREATININE (test code = CREAT) 0.6 mg/dL 0.5-1.0 N CALCIUM (test code = CA) 9.0 mg/dL 8.4-10.2 N URINALYSIS [id number] 10:48:00 Test Item Value Reference Range Interpretation Comments UA COLOR (test code = COLU) YELLOW YELLOW UA APPEARANCE (test code = CLEAR CLEAR APPU) UA GLUCOSE DIPSTICK (test code NEGATIVE NEG = DGLUU) UA BILIRUBIN DIPSTICK (test NEGATIVE NEG code = BILU) UA KETONE DIPSTICK (test code NEGATIVE NEG = KETU) UA SPECIFIC GRAVITY (test code 1.026 1.001-1.035 N = SGU) UA BLOOD DIPSTICK (test code = NEG NEG EMILY) UA PH DIPSTICK (test code = 6.0 5-9 GAYLE) UA PROTEIN DIPSTICK (test code NEGATIVE NEG = PROU) UA UROBILINIOGEN DIPSTICK NEGATIVE mg/dL NEG (test code = URO) UA NITRITE DIPSTICK (test code NEG NEG = RADHA) UA LEUKOCYTE ESTERASE DIPSTICK NEG NEG (test code = LEUU) UA WBC (test code = WBCU) 0-2 #/hpf NONE SEEN UA EPITHELIAL CELLS (test code RARE #/HPF RARE-FEW = EPIU) UA MUCUS (test code = MUCU) RARE NONE SEEN URINE SAMPLE: CLEAN CATCHCBC W/AUTO [id number] 10:47:00 Test Item Value Reference Range Interpretation Comments WHITE BLOOD CELL (test code = WBC) 7.3 K/mm3 6.6-12.1 N RED BLOOD CELL (test code = RBC) 4.53 M/mm3 3.45-5.01 N HEMOGLOBIN (test code = HGB) 12.9 g/dL 10.7-13.9 N HEMATOCRIT (test code = HCT) 40.6 % 32.1-42.1 N MEAN CELL VOLUME (test code = MCV) 90 fL 84.1-94.8 N MEAN CELL HGB (test code = MCH) 28.5 pg 27-35 N MEAN CELL HGB CONCETRATION (test 31.8 gm/dL 32.2-34.1 L code = MCHC) RED CELL DISTRIBUTION WIDTH (test 12.9 % 12.4-16.5 N code = RDW) PLATELET COUNT (test code = PLT) 186 K/mm3 133-385 N MEAN PLATELET VOLUME (test code = 13.2 fl 9.1-12.7 H MPV) NEUTROPHIL % (test code = NT%) 56.9 % 56.5-79.4 N LYMPHOCYTE % (test code = LY%) 36.8 % 14.3-34.3 H MONOCYTE % (test code = MO%) 4.8 % 5.1-10.4 L EOSINOPHIL % (test code = EO%) 1.0 % 0.1-3.0 N BASOPHIL % (test code = BA%) 0.4 % 0.1-1.0 N NEUTROPHIL # (test code = NT#) 4.1 K/mm3 LYMPHOCYTE # (test code = LY#) 2.7 K/mm3 MONOCYTE # (test code = MO#) 0.4 K/mm3 EOSINOPHIL # (test code = EO#) 0.07 K/mm3 BASOPHIL # (test code = BA#) 0.0 K/mm3 RBC MORPHOLOGY REQUIRED (test code NORMAL NORMAL = RBCM) PLATELET MORPHOLOGY REQUIRED (test NORMAL NORMAL code = PLTMR)
[2023-01-22 21:53] LABS: Hematocrit 35.4 % (36.0-45.0); Lymphocytes % 36.7 % (15.3-44.8); MCV 87.6 fL (80-100); MPV 10.6 fL (7.6-11.3); RBC Red Blood Cell Count 4.04 M/uL (3.86-4.86)
[2023-01-22] MEDS ORDERED: NA CHLORIDE 0.9% 1,000 ML ONE (22:04)
[2023-01-22 22:24] LABS: Potassium 3.6 mEq/L (3.5-5.1)
[2023-01-22 22:26] LABS: Urine Blood Trace-lysed (Negative); Urine Glucose Negative (Negative); Urine Protein Negative (Negative)
--- NOTE | 2023-01-23 00:01 | ER ---
Nurse's Notes [facility] Name: Saima Stanton Age: 32 yrs Sex: Female : 1990 Arrival Date: 01/22/2023 Time: 20:46 Bed 15 Private MD: Diagnosis: Less than 8 weeks gestation of ;Other specified related conditions, first trimester Presentation: 01/22 21:30 Chief complaint: Patient states: bright red, light amount of vaginal bleeding started eh3 Wednesday. Pt is approximately 7 weeks . Coronavirus screen: Vaccine status: Patient reports being unvaccinated. Ebola Screen: No symptoms or risks identified at this time. Initial Sepsis Screen: Does the patient meet any 2 criteria? No. Patient's initial sepsis screen is negative. Does the patient have a suspected source of infection? No. Patient's initial sepsis screen is negative. Risk Assessment: Do you want to hurt yourself or someone else? Patient reports no desire to harm self or others. Onset of symptoms was January 19, 2023. 21:30 Method Of Arrival: Ambulatory 3 21:30 Acuity: AD 3 eh3 Triage Assessment: 21:30 General: Appears in no apparent distress. comfortable, Behavior is calm, cooperative, eh3 appropriate for age. Pain: Denies pain. EENT: No deficits noted. Neuro: Level of Consciousness is awake, alert, obeys commands, Oriented to person, place, time, situation. Cardiovascular: Capillary refill < 3 seconds Patient's skin is warm and dry. Respiratory: Airway is patent Respiratory effort is even, unlabored, Respiratory pattern is regular, symmetrical. GI: Abdomen is round non-distended. : Reports vaginal bleeding that is bright red, light flow, since Wednesday. Derm: Skin is pink, warm \T\ dry. Musculoskeletal: No signs and/or symptoms reported regarding the musculoskeletal system. 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 - Social history:: Smoking status: Patient denies any tobacco usage or history of. Patient/guardian denies using alcohol. Screenin:30 [facility] ED Fall Risk Assessment (Adult) Score/Fall Risk Level 0 - 2 = Low Risk. Abuse 3 screen: Denies threats or abuse. Denies injuries from another. Nutritional screening: No deficits noted. Tuberculosis screening: No symptoms or risk factors identified. Assessment: 21:30 Reassessment: No changes from previously documented assessment. See triage assessment. 3 22:30 Reassessment: Patient appears in no apparent distress at this time. Patient and/or 3 family updated on plan of care and expected duration. Pain level reassessed. Patient is alert, oriented x 3, equal unlabored respirations, skin warm/dry/pink. 23:30 Reassessment: Patient appears in no apparent distress at this time. Patient and/or 3 family updated on plan of care and expected duration. Pain level reassessed. Patient is alert, oriented x 3, equal unlabored respirations, skin warm/dry/pink. Vital Signs: 21:30 BP 98 / 53; Pulse 81; Resp 18; Temp 98.2(IR); Pulse Ox 100% ; Weight 61.23 kg; Height 5 3 ft. 0 in. ; Pain 0/10; 22:30 BP 107 / 57; Pulse 89; Resp 18; Pulse Ox 99% on R/A; eh3 23:30 BP 108 / 48; Pulse 84; Resp 18; Pulse Ox 100% on R/A; eh3 21:30 Body Mass Index 26.36 (61.23 kg, 152.4 cm) 3 21:30 Pain Scale: Adult [facility] ED Course: 20:46 Patient arrived in ED. jj6 20:53 Kimmie Urbina FNP-C is PHCP. snw 20:53 Jesse Johnston DO is Attending Physician. snw 21:30 Triage completed. Jeanen Rasmussen, RN is Primary Nurse. 3 21:30 Arm band placed on. 3 21:30 Patient has correct armband on for positive identification. Bed in low position. Call [facility] light in reach. Side rails up X2. Pulse ox on. NIBP on. Door closed. Noise minimized. Lights dimmed. Warm blanket given. 23:50 US Transvaginal Ob In Process Unspecified. EDMS Administered Medications: 22:00 Drug: NS 0.9% IV 1000 ml Route: IV; Rate: 1 bolus; Site: right antecubital; [facility] Outcome: 01/23 00:00 Discharge ordered by MD. tate Signatures: Dispatcher [employer] EDKimmie Bernardo, MARYELLENC SHINGLE WEAVER-Csnw Ana Luisa Snow [email or web address] Jeanne Rasmussen, RN RN [facility] Corrections: (The following items were deleted from the chart) 01/22 21:56 21:44 Jeanne Rasmussen RN is Primary Nurse. [facility] 21:56 21:52 Triage [place]. [place] [address] 22:32 22:30 BP 107 / 57; Pulse 89bpm; Resp 18bpm; Pulse Ox 99% RA; [facility] 22:33 21:30 BP 98 / 53; Pulse 81bpm; Resp 18bpm; Pulse Ox 100%; 61.23 kg; Height 5 ft. 0 in.; [facility] BMI: 26.3; Pain 0/10, Adult; [facility]
--- NOTE | 2023-01-23 00:02 | EDPHYS ---
Physician Documentation [facility] Name: Saima Stanton Age: 32 yrs Sex: Female : 1990 Arrival Date: 01/22/2023 Time: 20:46 Bed 15 Private MD: ED Physician Jesse Johnston HPI: 01/22 21:19 This 32 yrs old Female presents to ER via Unassigned with complaints of Pelvic snw Pain, EST 7 WKS Gestation, Vaginal Bleeding. 21:19 The patient presents with vaginal bleeding that is light, spotting, with no clots. snw Onset: The symptoms/episode began/occurred acutely. Modifying factors: The symptoms are alleviated by nothing, the symptoms are aggravated by nothing. Severity of symptoms: At their worst the symptoms were moderate. The patient is sexually active, reportedly has a single partner. The patient's method of control includes nothing. taking progesterone. The patient has experienced similar episodes in the past. The patient has not recently seen a physician, Ob out of town. 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 - Social history:: Smoking status: Patient denies any tobacco usage or history of. Patient/guardian denies using alcohol. ROS: 21:18 Constitutional: Negative for fever, chills, and weight loss, Eyes: Negative for injury, snw pain, redness, and discharge, ENT: Negative for injury, pain, and discharge, Neck: Negative for injury, pain, and swelling, Cardiovascular: Negative for chest pain, palpitations, and edema, Respiratory: Negative for shortness of breath, cough, wheezing, and pleuritic chest pain, Abdomen/GI: Negative for abdominal pain, nausea, vomiting, diarrhea, and constipation, Back: Negative for injury and pain, MS/Extremity: Negative for injury and deformity, Skin: Negative for injury, rash, and discoloration, Neuro: Negative for headache, weakness, numbness, tingling, and seizure, Psych: Negative for depression, anxiety, suicide ideation, homicidal ideation, and hallucinations. 21:18 : Positive for vaginal bleeding, . Exam: 21:18 Constitutional: This is a well developed, well nourished patient who is awake, alert, snw and in no acute distress. Head/Face: Normocephalic, atraumatic. Eyes: Pupils equal round and reactive to light, extra-ocular motions intact. Lids and lashes normal. Conjunctiva and sclera are non-icteric and not injected. Cornea within normal limits. Periorbital areas with no swelling, redness, or edema. ENT: Nares patent. No nasal discharge, no septal abnormalities noted. Tympanic membranes are normal and external auditory canals are clear. Oropharynx with no redness, swelling, or masses, exudates, or evidence of obstruction, uvula midline. Mucous membranes moist. Neck: Trachea midline, no thyromegaly or masses palpated, and no cervical lymphadenopathy. Supple, full range of motion without nuchal rigidity, or vertebral point tenderness. No Meningismus. Chest/axilla: Normal chest wall appearance and motion. Nontender with no deformity. No lesions are appreciated. Cardiovascular: Regular rate and rhythm with a normal S1 and S2. No gallops, murmurs, or rubs. Normal PMI, no JVD. No pulse deficits. Respiratory: Lungs have equal breath sounds bilaterally, clear to auscultation and percussion. No rales, rhonchi or wheezes noted. No increased work of breathing, no retractions or nasal flaring. Abdomen/GI: Soft, non-tender, with normal bowel sounds. No distension or tympany. No guarding or rebound. No evidence of tenderness throughout. Back: No spinal tenderness. No costovertebral tenderness. Full range of motion. Skin: Warm, dry with normal turgor. Normal color with no rashes, no lesions, and no evidence of cellulitis. MS/ Extremity: Pulses equal, no cyanosis. Neurovascular intact. Full, normal range of motion. Neuro: Awake and alert, GCS 15, oriented to person, place, time, and situation. Cranial nerves II-XII grossly intact. Motor strength 5/5 in all extremities. Sensory grossly intact. Cerebellar exam normal. Normal gait. Psych: Awake, alert, with orientation to person, place and time. Behavior, mood, and affect are within normal limits. Vital Signs: 21:30 BP 98 / 53; Pulse 81; Resp 18; Temp 98.2(IR); Pulse Ox 100% ; Weight 61.23 kg; Height 5 eh3 ft. 0 in. ; Pain 0/10; 22:30 BP 107 / 57; Pulse 89; Resp 18; Pulse Ox 99% on R/A; eh3 23:30 BP 108 / 48; Pulse 84; Resp 18; Pulse Ox 100% on R/A; eh3 21:30 Body Mass Index 26.36 (61.23 kg, 152.4 cm) 3 21:30 Pain Scale: Adult eh3 MDM: 21:01 Patient medically screened. snw 21:21 Differential diagnosis: dysmenorrhea, ectopic , Data reviewed: vital signs, snw nurses notes. 01/22 21:14 Order name: IV Saline Lock; Complete Time: 21:56 count includes the [facility] 01/22 21:14 Order name: Labs collected and sent; Complete Time: 21:56 count includes the [facility] 01/22 21:14 Order name: NPO; Complete Time: 21:56 count includes the [facility] 01/22 21:14 Order name: CBC with Diff; Complete Time: 21:57 count includes the [facility] 01/22 21:14 Order name: Urine Dipstick-Ancillary (obtain specimen); Complete Time: 22:26 count includes the [facility] 01/22 21:14 Order name: Urine Test (obtain specimen); Complete Time: 22:26 count includes the [facility] 01/22 21:14 Order name: Basic Metabolic Panel; Complete Time: 22:27 count includes the [facility] 01/22 21:14 Order name: Quantitative Hcg; Complete Time: 22:27 count includes the [facility] 01/22 21:14 Order name: Abo/rh Typing; Complete Time: 22:27 count includes the [facility] 01/22 22:53 Order name: Urine --Ancillary (enter results); Complete Time: 23:00 ds4 01/22 21:14 Order name: US Transvaginal Ob count includes the [facility] 01/22 22:26 Order name: Urine Dipstick-Ancillary; Complete Time: 22:27 EDMS Administered Medications: 22:00 Drug: NS 0.9% IV 1000 ml Route: IV; Rate: 1 bolus; Site: right antecubital; 3 Disposition: 23:49 Co-signature as Attending Physician, Jesse BLANCO was immediately available on-site ms3 in the Emergency Department for consultation in the care of the patient. Disposition Summary: 01/23/23 00:00 Discharge Ordered Location: Home snw Condition: Stable snw Diagnosis - Less than 8 weeks gestation of snw - Other specified related conditions, first trimester snw Followup: snw - With: Emergency Department - When: As needed - Reason: Worsening of condition Followup: snw - With: Private Physician - When: 2 - 3 days - Reason: Recheck today's complaints, Continuance of care, Re-evaluation by your physician Discharge Instructions: - Discharge Summary Sheet eh3 - Care snw - Vaginal Bleeding During , First Trimester snw Forms: - SBAR form eh3 - Medication Reconciliation Form snw - Thank You Letter snw - Antibiotic Education snw - Prescription Opioid Use snw Signatures: Dispatcher [employer] EDMS Kimmie Urbina, CHRISTINE STATIONARY ENGINEER APPRENTICE-Csnw Jesse Johnston DO DO ms3 Jeanne Rasmussen RN RN 3
[2023-01-23 03:22] VITALS: TEMP 98.2
[2023-01-23 03:24] VITALS: BP 108/48; O2SAT 100
--- NOTE | 2023-01-23 21:15 | RAD REPORT ---
EXAM DESCRIPTION: US - Transvaginal OB - 01/22/2023 11:48 pm CLINICAL HISTORY: ABD CRAMPING, Initial exam. COMPARISON: None TECHNIQUE: Limited, sonographic obstetrical examination for the basis of emergency evaluation. This exam is not performed as a formal anatomical obstetrical scan. The exam was performed via transabdomi nal and transvaginal approach. FINDINGS: Uterus: The uterus is anteverted measuring 7.3 x 4.6 x 6.3 cm for volume of 110 mL. Gestational sac: Single normal-appearing gestational sac. No subchorionic hemorrhage noted. Yolk sac: Present. pole: Single pole. [place]-rump length: 6.3 mm. This corresponds to 6 weeks 4 days heart rate: 104 beats per minute. Right ovary: The right ovary measures 3.4 x 2.1 x 2.1 cm for volume of 7.8 mL. There is a corpus luteal cyst measuring 1.1 cm. Left ovary: Unremarkable measuring 1.8 x 1.4 x 1.8 cm for volume of 2.4 mL. Free fluid: None. IMPRESSION: 1. Single live intrauterine gestation with an estimated gestational age of 6 weeks 4 day s. Electronically signed by: Antonino Reyes MD 01/23/2023 12:10 AM CDT Due to temporary technical issues with the PACS/Fluency reporting system, reports are being signed by the in house radiologists without review as a courtesy to insure prompt reporting. The interpreting radiologist is fully responsible for the content of the report.
== END 2023-01-23 00:08 | disposition home or self-care (01) ==
LOC: ER 20:43
DX: O26.891 Other specified pregnancy related conditions, first trimester (principal); O98.511 Other viral diseases complicating pregnancy, first trimester; B00.9 Herpesviral infection, unspecified; Z3A.01 Less than 8 weeks gestation of pregnancy
CPT/HCPCS: 96361; 85025; 80048; 36415; 86900; 81025; 86901; 84702; 81003; 76817; 96360; 99283; J7030